=== PATIENT | male | born 1955 | race Caucasian/White ===

== ENCOUNTER 2018-09-29 15:59 | Inpatient (IN) ==
[2018-09-29 16:38] LABS: BASO# 0.03 X1000 (0.0-0.2); BASO% 0.2 % (0.0-0.8); EOS# 0.04 X1000 (0.0-0.7); EOS% 0.2 % (0.0-10.0); HEMATOCRIT 40.3 % (42.0-52.0); HEMOGLOBIN 14.6 g/dL (14.0-18.0); IMM GRAN# 0.09 X1000 (0.0-0.04); IMM GRAN% 0.5 % (0.0-0.5); LYMPH% 3.1 % (20.5-51.1); MCH 31.9 PG (27-31); MCHC 36.2 g/dL (33-37); MONO# 1.01 X1000 (0.11-0.59); MONO% 5.2 % (1.7-9.3); MPV 10.8 FL (7.4-10.4); NEUT# 17.48 X1000 (1.4-6.5); NEUT% 90.8 % (42.2-75.2); PLT 105 X1000 (130-400); RBC 4.58 XMIL (4.7-6.1); RDW 14.2 % (11.5-14.5); WBC 19.25 X1000 (4.8-10.8)
[2018-09-29 16:45] LABS: INR 1.15; PROTIME 15.6 Seconds (11.0-16.0)
[2018-09-29 16:46] LABS: PTT 37.8 Seconds (22.3-41.8)
[2018-09-29] MEDS ORDERED: NS 1,000 ML IV ONE ×2 (16:53)
[2018-09-29] MEDS ORDERED: CIPRO 400 MG/D5W 400 MG/200 ML IVPB IV SCH (17:00)
[2018-09-29 17:02] LABS: ALB/GLOB RATIO 0.9; ALBUMIN 2.9 g/dL (3.5-5.0); CALCIUM 7.9 mg/dL (8.8-10.2); POTASSIUM 4.3 mmol/L (3.5-5.1); TOTAL BILIRUBIN 0.75 mg/dL (0.20-1.00); TOTAL PROTEIN 6.1 g/dL (6.3-8.3)
--- NOTE | 2018-09-29 17:39 | Diag Imaging Result Doc PS360 ---
EXAM: CHEST-1 VIEW HISTORY: POSSIBLE SEPSIS TECHNIQUE: Chest single view COMPARISON: 12/11/2016 FINDINGS: The lungs are well expanded. The heart is not enlarged. The vessels are not distended. There are no infiltrates. No effusion identified. There are small scattered granuloma. IMPRESSION: No pneumonia Electronically signed by Javed Young 09/29/2018 5:37 PM
--- NOTE | 2018-09-29 18:54 | Diag Imaging Result Doc PS360 ---
EXAM: CT ABDOMEN/PELVIS W/O CONTRAST HISTORY: L flank pain, ROCIO TECHNIQUE: CT abdomen and pelvis without contrast COMPARISON: 10/11/2016 FINDINGS: The liver is enlarged. No focal hepatic normality identified on this noncontrasted exam. The spleen measures 13.9 cm in length. No calcified gallstones or adjacent inflammation. Normal pancreas and adrenal glands. No renal stones. No hydronephrosis. No aortic aneurysm. Moderate atherosclerosis. No bowel obstruction. There is stool throughout the colon. No abscess. The urinary bladder is poorly distended. There is thickening to the wall. The prostate is not enlarged. Prominent degenerative changes at L5-S1. IMPRESSION: 1.Hepatosplenomegaly 2.Constipation 3.No renal stones 4.Possible cystitis although the bladder is incompletely distended This exam was performed using automated exposure control, adjustment of mA or kV according to patient size, and/or use of iterative reconstruction technique. Electronically signed by Javed Young 09/29/2018 6:51 PM
[2018-09-29 19:46] LABS: URINE SOURCE CLEAN CATCH
[2018-09-29 19:56] LABS: BILIRUBIN URINE NEGATIVE (NEGATIVE); BLOOD URINE MODERATE (NEGATIVE); COLOR ORANGE; GLUCOSE URINE NEGATIVE (NEGATIVE); KETONE URINE NEGATIVE (NEGATIVE); LEUKOCYTES URINE LARGE (NEGATIVE); NITRITE URINE NEGATIVE (NEGATIVE); PROTEIN URINE 600 mg/dL (NEGATIVE); SP GRAVITY URINE 1.016; TURBIDITY URINE TURBID (CLEAR); UROBILINOGEN URINE 3 mg/dL (NORMAL)
[2018-09-29 20:09] LABS: UR EPITHELIAL CELLS <10 /HPF (<10); URINE BACTERIA 4+ /HPF; URINE RBC 20-40 /HPF (<10); URINE WBC TNTC /HPF (<10)
[2018-09-29 20:11] LABS: URINE YEAST NONE SEEN
[2018-09-29 20:12] LABS: UR AMPHETAMINES QUAL NONE DETECTED (NONE DETECT); UR BARBITUATES QUAL NONE DETECTED (NONE DETECT); UR BENZODIAZEPIN QUAL NONE DETECTED (NONE DETECT); UR CANNABINOIDS QUAL NONE DETECTED (NONE DETECT); UR COCAINE QUAL NONE DETECTED (NONE DETECT); UR METHADONE QUAL NONE DETECTED (NONE DETECT); UR OPIATES QUAL NONE DETECTED (NONE DETECT); UR OXYCODONE QUAL PRESUMPTIVE POSITIVE (NONE DETECT); UR PCP QUAL NONE DETECTED (NONE DETECT)
[2018-09-29] MEDS ORDERED: MORPHINE IV ONE (20:17)
[2018-09-29] MEDS ORDERED: ZOFRAN IV ONE (20:17)
[2018-09-29] MEDS ORDERED: COMPAZINE IV ONE (21:46)
[2018-09-29] MEDS ORDERED: PERICOLACE PO ONE (22:26)
[2018-09-30] MEDS ORDERED: ROCEPHIN 1 GM in NS 50 ML IV SCH (01:03)
[2018-09-30] MEDS ORDERED: COMPAZINE IV PRN (01:03)
[2018-09-30] MEDS ORDERED: TYLENOL PO PRN (01:03)
[2018-09-30] MEDS ORDERED: SODIUM CHLORIDE 0.9% INJ ONE (01:03)
[2018-09-30] MEDS: NS 1,000 ML IV SCH ×3 (03:02→16:45)
[2018-09-30] MEDS: MORPHINE IV PRN ×3 (03:02→16:12)
[2018-09-30] MEDS: HEPARIN SUBQ SCH ×2 (03:02→13:46)
[2018-09-30 03:10] LABS: UR CREAT RANDOM 112.5 mg/dL (14-26)
[2018-09-30 05:48] LABS: BASO# 0.03 X1000 (0.0-0.2); BASO% 0.2 % (0.0-0.8); EOS# 0.05 X1000 (0.0-0.7); EOS% 0.3 % (0.0-10.0); HEMATOCRIT 36.1 % (42.0-52.0); IMM GRAN# 0.07 X1000 (0.0-0.04); IMM GRAN% 0.4 % (0.0-0.5); LYMPH# 0.72 X1000 (1.2-3.4); LYMPH% 4.4 % (20.5-51.1); MCH 31.6 PG (27-31); MCV 87.8 FL (81-99); MONO% 6.1 % (1.7-9.3); MPV 10.5 FL (7.4-10.4); NEUT# 14.42 X1000 (1.4-6.5); NEUT% 88.6 % (42.2-75.2); PLT 99 X1000 (130-400); RBC 4.11 XMIL (4.7-6.1); RDW 14.2 % (11.5-14.5); WBC 16.29 X1000 (4.8-10.8)
[2018-09-30 06:15] LABS: CALCIUM 7.8 mg/dL (8.8-10.2); CREATININE 5.3 mg/dL (0.7-1.2); MAGNESIUM 2.1 mg/dL (1.5-2.7)
--- NOTE | 2018-09-30 07:05 | HISTORY AND PHYSICAL ---
PHYSICIAN: John Swain MD REASON FOR ADMISSION: One-week history of persistent nausea and flank pain. HISTORY OF PRESENT ILLNESS: Mr. Bryan Carey is a 63-year-old man with a past medical history of hypogonadism, kidney stones, BPH, glaucoma, seasonal allergic rhinitis and reflux disease. He reports that about two weeks ago he started having low back pain on both sides of his flank, non-radiating and intermittent. A week later the pain got worse, it became constant, sharp, and no specific aggravating or relieving factors, and subsequently the pain localized to the left lower flank area. Over the course of the week the pain increased in intensity and he developed some nausea with very occasional episodes of vomiting small amounts of whatever he attempted to ingest. He admits to having chills, night sweats and subjective fevers. He also complains of postural lightheadedness over the last couple of days. He says his urine output has been declining over the last three days up to the point today that when he went to see his family doctor his urine was very dark and "dirty." At that time juncture Dr. Swain referred him to the ER to be evaluated further. The son at bedside informs me that his dad's blood pressure over the last few days has been anywhere between 70 to 80 systolic. The patient denies any diarrhea or bleeding from an orifice, any use of NSAIDs. He admits to having increased urinary hesitancy and straining. As a consequence of his nausea, oral intake of both liquids and food has declined. He denies any hematuria. He denies any other additional GI complaints. No cardiorespiratory complaints. No focal neurological complaints. REVIEW OF SYSTEMS: Notable for constipation. A 12-system review was done. No polyuria or polydipsia. Positive for xerostomia and generalized weakness. ALLERGIES: Latex, Lyrica, and hydrocodone. HOME MEDICATIONS: The patient is on omeprazole 40 mg daily, oxycodone 10 mg four times a day as needed, brimonidine eyedrops twice daily, testosterone, cypionate 100 mg IM, travoprost 5 mL to both eyes, Zofran 4 mg p.r.n., Zyrtec 10 mg daily. PAST SURGICAL HISTORY: The patient has low back pain. He has had a left total knee replacement. Arthroscopy of the right knee. Bilateral inguinal hernia repair. Sinus surgery. Tonsillectomy. Vasectomy. FAMILY HISTORY: Breast cancer, heart disease, colorectal cancer, leukemia, melanoma, lung cancer. Nobody with kidney disease. SOCIAL HISTORY: He smokes 1-1/2 packs a day and drinks a beer maybe once a month. No illicit drug use. LABORATORY WORK: White count 19,000. Hemoglobin 14. Hematocrit 40. Platelets 105,000, which is a decline from 224 two years ago. Sodium 129. BUN 54. Creatinine 5.0. Bicarb 19. Anion gap 14. Glucose 131. Calcium 7.9. Troponin is negative. Albumin 2.9. Lactate is 1.5. PT and PTT normal. UDS positive for oxycodone. Urinalysis moderate blood too numerous to count, wbc's too numerous to count, 4+ bacteria. CT abdomen and pelvis showed constipation, hepatosplenomegaly, possible cystitis in the bladder. Chest film, no evidence of pneumonia. PHYSICAL EXAMINATION: VITAL SIGNS: Blood pressure is 101/56, heart rate is 116, temperature is 97.5. Afebrile. This is after 3 L of IV fluids. GENERAL: He is a middle-aged man who is in [id number] distress from the pain and nausea. He is alert and oriented to person, place and time with a normal mood and affect. HEENT: Head is normocephalic and atraumatic. Eyes, PERRL. EOMI. Sclerae anicteric, not pale. ENT and oropharynx exam shows moderate xerostomia but no exudate or erythema. No central cyanosis. NECK: Supple. No JVD, carotid bruits, or thyromegaly. Turgor is normal. CHEST: The patient has decreased air entry in both lung hilton with expiratory wheezes. CARDIOVASCULAR: First and second heart sounds heard. No gallops, murmurs, rubs. Rhythm is regular. ABDOMEN: Full, soft. There are no focal areas of tenderness anteriorly. He has bilateral CVA tenderness, however. Bowel sounds are diminished. RECTAL: Deferred at this time. EXTREMITIES: The patient surprisingly has good pulse volume distally in all extremities. They are symmetrical and regular. No edema, clubbing, or peripheral cyanosis. NEUROLOGIC: No asterixis. No focal deficits. SKIN: Intact with no breakdown, lesions, or erythema. MUSCULOSKELETAL: Grossly normal. ASSESSMENT: 1. Acute kidney injury, probably secondary to poor oral intake and the possibility of consumption of a nephrotoxic medication. 2. Urinary tract infection, possible pyelonephritis. 3. Possible obstructive uropathy. 4. Hypotonic, hypovolemic hyponatremia. PLAN: The patient will be treated empirically with Rocephin for a UTI. We will follow cultures closely. The patient will be aggressively hydrated with fluids and BMP closely monitored. Strict I's and O's also need to be instituted. Hyponatremia noted. We will correct once normal saline has been administered. Follow BMP the next day. We will get urine indices to determine the etiology of ROCIO. My suspicion is going to be a combination of prerenal and renal etiology. We will order a retroperitoneal sonogram to rule out obstructive uropathy. We will start the patient on Flomax, if available, due to the fact the patient is having increased urinary strain. If it is deemed that this patient is having obstructive uropathy from prostate issues, we will definitely need to review the possibility of anticholinergic effects, example Zyrtec which is on his list. We will treat the patient symptomatically regarding nausea, vomiting, and hiccups with multiple antiemetics. Failure for creatinine to improve after aggressive fluid resuscitation will necessitate a consult with the consumer product advisor. cc: MD John Brown MD MTDD
[2018-09-30] MEDS ORDERED: CARDIZEM ONE (07:34)
[2018-09-30] MEDS ORDERED: CARDIZEM IV ONE (07:35)
--- NOTE | 2018-09-30 07:35 | Diag Imaging Result Doc PS360 ---
EXAM: US RENAL 2 (RETROPER) COMPLETE HISTORY: ROCIO TECHNIQUE: Renal ultrasound COMPARISON: None. FINDINGS: The right kidney measures 12.7 x 4.3 x 4.9 cm. No renal stone or hydronephrosis. Normal cortical thickness. Persistent echotexture. No renal mass. The left kidney measures 13.1 x 5.4 x 6.5 cm. Normal renal echotexture and cortical thickness. No renal stone or hydronephrosis. No renal mass. The urinary bladder is only mildly distended. IMPRESSION: Questionable slight increased renal echotexture, otherwise normal exam. Electronically signed by Javed Young 09/30/2018 7:33 AM
--- NOTE | 2018-09-30 07:44 | EKG Report ---
Test Performed on : 09/30/2018 07:23:46 AM Test Reason : TACHYCARDIA Blood Pressure : / mmHG Vent. Rate : 152 BPM Atrial Rate : 150 BPM P-R Int : 000 ms QRS Dur : 088 ms QT Int : 256 ms P-R-T Axes : 000 077 046 degrees QTc Int : 407 ms Atrial fibrillation. with rapid ventricular response. Minimal voltage criteria for LVH, may be normal variant Nonspecific ST abnormality Abnormal ECG When compared with ECG of 21-OCT-2016 10:54, Atrial fibrillation. has replaced Sinus rhythm. Vent. rate has increased BY 56 BPM Unconfirmed Result
[2018-09-30] MEDS ORDERED: CARDIZEM 125 MG in NS 100 ML IV SCH (07:45)
[2018-09-30] MEDS: PERCOCET-10 PO SCH ×4 (08:35→20:59)
[2018-09-30] MEDS: PROTONIX IV SCH (08:35)
[2018-09-30] MEDS: PERICOLACE PO SCH ×3 (09:00→21:02)
[2018-09-30] MEDS ORDERED: TRAVATAN 0.004% OPH SOLN BOTH EYES SCH (09:00)
--- NOTE | 2018-09-30 11:00 | EKG Report ---
Test Performed on : 09/30/2018 10:56:02 AM Test Reason : afib Blood Pressure : / mmHG Vent. Rate : 098 BPM Atrial Rate : 105 BPM P-R Int : 000 ms QRS Dur : 092 ms QT Int : 328 ms P-R-T Axes : 000 078 065 degrees QTc Int : 418 ms Atrial fibrillation. Incomplete right bundle branch block Minimal voltage criteria for LVH, may be normal variant Abnormal ECG When compared with ECG of 30-SEP-2018 07:23, (Unconfirmed) Vent. rate has decreased BY [address] no longer depressed in Inferior leads Confirmed by Janice WHITTINGTON, Frandy ([id number]) on 09/30/2018 6:22:49 PM
[2018-09-30] MEDS ORDERED: CORDARONE 360 MG/D5W 360 MG/200 ML IV.SOLN IV ONE (11:12)
[2018-09-30] MEDS ORDERED: MAXIPIME 2 GM in NS 100 ML IV ONE (11:12)
[2018-09-30] MEDS ORDERED: CORDARONE 150 MG/D5W 150 MG/100 ML IV.SOLN IV ONE (11:12)
[2018-09-30] MEDS ORDERED: LOPRESSOR 5 MG in NS 50 ML IV SCH (11:15)
[2018-09-30] MEDS ORDERED: LOPRESSOR IV PRN (12:18)
--- NOTE | 2018-09-30 12:53 | CONSULTATION ---
DATE OF CONSULTATION: 09/30/2018 IMPRESSION: 1. Atrial fibrillation with rapid ventricular rate of recent onset. Suspect likely provoked by acuity of noncardiac illness. 2. Suspected urosepsis. 3. Likely COPD. 4. Hyponatremia. RECOMMENDATIONS: 1. Given tendency for low blood pressure with intravenous diltiazem, suggest switching to intravenous amiodarone for rate control. 2. Intravenous hydration. 3. Echocardiography. We will initially obtain limited echocardiography for quick assessment of left ventricular function. Tilt guide further volume replacement. 4. Treat for urosepsis as you are doing with parental antibiotics. HISTORY: This 63-year-old white male with past history of longstanding cigarette use, nephrolithiasis and probable COPD presents to the emergency room by ambulance with nausea and vomiting, and left flank pain for about a week. He has had diminished oral intake as well as fever and chills. He has had some diaphoresis developing as well. On presentation, he was found to be in atrial fibrillation with rapid ventricular rate. He was started on intravenous Cardizem, but his blood pressure became low. Cardiology was consulted. He is not aware of any previous cardiac problems. He has no history of angina. PAST MEDICAL HISTORY: 1. Nephrolithiasis. 2. Probable COPD. 3. Hypogonadism. 4. Prostate hypertrophy. 5. Glaucoma. 6. Gastroesophageal reflux. PAST SURGICAL HISTORY: Left total knee replacement, right knee arthroscopic procedure, bilateral inguinal hernia repair, unspecified sinus surgery, tonsillectomy and vasectomy. ALLERGIES: He is allergic or intolerant to hydrocodone, pregabalin and latex. MEDICATIONS PRIOR TO ADMISSION: As listed. SOCIAL HISTORY: He is retired from previous work operating heavy equipment. He smokes 1-1/2 pack of cigarettes a day. He denies significant alcohol use. He does not use recreational drugs. FAMILY HISTORY: Negative for premature coronary disease. REVIEW OF SYSTEMS: Pulmonary: Noteworthy for some chronic shortness of breath but negative for cough. Gastrointestinal: Noteworthy for gastroesophageal reflux. Otherwise negative. Constitutional: Noteworthy for fever and chills, but otherwise negative review of systems negative/noncontributory with 14 total systems reviewed. PHYSICAL EXAMINATION: General: This is a thin middle-aged white male in no distress. Vital signs: Blood pressure 98/48, heart rate 110 and irregular with ECG monitor showing atrial fibrillation. HEENT: Extraocular movements intact. Mucous membranes moist. Neck: Supple. No jugular venous distention. There are no carotid bruits. Chest: Auscultation of the chest reveals a few scattered expiratory wheezes. Cardiac: Reveals an irregular rate and rhythm without appreciable murmur or gallop. Abdomen: Soft, nontender. Back: Exam reveals some percussion tenderness and left costovertebral angle. Extremities: Without edema. Neurologic: Exam reveals him to be alert and fully oriented. Speech is fluent. Moves all 4 extremities equally well. Skin: Warm and dry. Psychiatric: Reveals mood to be appropriate. PERTINENT DATA: Twelve lead EKG demonstrates atrial fibrillation with rapid ventricular rate. LABORATORY DATA: Sodium 128, potassium 5.0, chloride 99, carbon dioxide 18, BUN 56, creatinine 5.3, glucose 113, magnesium 2.1. CPK 42. Troponin T less than 0.01. Urinalysis positive for leukocytes. cc: Anjum Koenig MD
[2018-09-30 14:43] LABS: CALCIUM 7.8 mg/dL (8.8-10.2); CREATININE 5.3 mg/dL (0.7-1.2); POTASSIUM 4.7 mmol/L (3.5-5.1)
[2018-09-30 16:33] LABS: FREE T4 0.98 ng/dL (0.93-1.70); TSH 0.72 uIUmL (0.27-4.20)
[2018-09-30] MEDS ORDERED: CORDARONE 540 MG in D5W 289.2 ML IV ONE (17:12)
--- NOTE | 2018-09-30 18:08 | PROGRESS NOTE ---
DATE: 09/30/2018 INTERVAL HISTORY: The patient with new onset of atrial fibrillation with RVR this morning. Heart rate is up into the 160s and 170s. Was initially placed on diltiazem with only some improvement. However, diltiazem drops his blood pressure. After discussion with Cardiology, this was changed to amiodarone which did finally control his heart rate. No fevers, but the patient did have an episode of diaphoresis and chills. Urine culture growing out gram-negative rods, and the blood cultures remain negative. Antibiotics adjusted for better Pseudomonas coverage. No other acute events overnight. No new complaints. REVIEW OF SYSTEMS: Still with low back pain, occasional diaphoresis, chills. No fevers. Occasional mild nausea, but no vomiting. No diarrhea. No dysuria. Twelve- point review of systems otherwise negative except as noted. LABORATORY DATA: WBC 16.2, hemoglobin 13, hematocrit 36.1, platelets 99,000. Sodium initially 128 and a repeat 132, potassium initial 5 and repeat 4.7. BUN 56, creatinine initial and recheck 5.3, glucose 113. Troponin negative x2. IMAGING: Chest x-ray with no acute process. CT abdomen and pelvis with hepatosplenomegaly and possible cystitis. Otherwise, unremarkable. Renal ultrasound with no evidence of obstruction. PHYSICAL EXAMINATION: Vitals: T-max 97.5, pulse 84 to 165, respirations 20, blood pressure 99/62, O2 saturations 95% on 2 L by nasal cannula. General: No acute distress. HEENT: Normocephalic, atraumatic. Dry mucous membranes. Neck: No cervical adenopathy. Cardiovascular: Irregular rhythm. Tachycardic. No murmurs noted. Pulmonary: Clear to auscultation bilaterally. No wheezing, rales, or rhonchi. No accessory muscle or increased work of breathing. Abdomen: Soft. Minimal suprapubic tenderness without rebound or guarding. Bowel sounds positive. No CVA tenderness. Extremities: Peripheral pulses intact. No clubbing, cyanosis, or edema. Minimal low lumbar spine tenderness bilaterally. Neurologic: Cranial nerves grossly intact. No focal deficits identified. Psychiatric: Normal mood and affect. Awake, alert, and oriented x3. Skin: No new rashes or lesions identified. ASSESSMENT AND PLAN: 1. Sepsis, possible pyelonephritis. Patient with urinalysis suggestive of urinary tract infection/cystitis. Back pain. Although current back pain is quite low and natasha CVA tenderness. Reportedly had flank pain earlier in his hospitalization. Significant leukocytosis and urine culture growing gram-negative rods. The patient appears to at least have cystitis with sepsis. May have pyelonephritis. Has had some slight improvement in leukocytosis, but otherwise little improvement. Occasional episodes of diaphoresis and chills could be related to new-onset atrial fibrillation, but will change Rocephin to cefepime to better cover for possible pseudomonal infection. Blood cultures, no growth today. Continue to monitor closely. 2. Acute kidney injury. Essentially normal baseline a few months ago. Urine output not documented, but appears to have a reasonable urine in his San catheter at the time of my exam. Slight up-trend in creatinine this morning but repeat this afternoon is stable. Continue to monitor. If kidney function fails to improve or worsens, then will likely get nephrology on board in the morning. For now, continue aggressive hydration and antibiotics as above. No acute need for dialysis at this time, and borderline hyperkalemia is improved. 3. Atrial fibrillation with rapid ventricular response. This is a new diagnosis for the patient. Cardiology was consulted. Initially given diltiazem, but this dropped his blood pressure too much. Transition to amiodarone which appears to be doing better. Initial troponin was negative x2. No chest pain. Thyroid studies pending. Suspect this is precipitated by his acute infection as above. 4. Hyponatremia, improved with intravenous fluids at a reasonable rate. Continue to monitor. 5. Gastroesophageal reflux disease. Continue PPI. 6. Chronic pain. The patient with morphine p.r.n. Given blood pressure low normal will not increase at this time. The patient reports being relatively comfortable. 7. Glaucoma. Continue home eye drops. 8. Deep vein thrombosis prophylaxis. Heparin. [facility]
--- NOTE | 2018-09-30 18:30 | ECHO REPORT ---
ORDER DATE: 09/30/2018 INTERPRETING PHYSICIAN: Ramesh Levin MD. INDICATION: A 63-year-old male with atrial fibrillation, evaluation of ejection fraction. M-MODE MEASUREMENTS: M-mode measurements were not obtained. SUMMARY OF 2-DIMENSIONAL IMAGIN. The study is limited. 2. The left ventricular systolic function is normal. Ejection fraction is estimated at 60%. 3. There is no evidence of significant left ventricular hypertrophy. 4. The chamber is mildly enlarged. 5. The right ventricle appears to be slightly enlarged. 6. The aortic valve appears to be grossly unremarkable. 7. The mitral valve also appears to be grossly unremarkable. 8. I do not see evidence of pericardial effusion. 9. The left atrium appears to be moderately enlarged. SUMMARY: In summary, this study shows: 1. Preserved left ventricular systolic function, ejection fraction of 61%. 2. No pericardial effusion. 3. Grossly unremarkable mitral and aortic valve. 4. Mild enlargement of both right and left ventricles. Clinical correlation recommended. This was a limited study. cc: MD Monalisa العراقي PA
[2018-09-30] MEDS: NON-FORMULARY BULK MED BOTH EYES SCH (20:59)
[2018-09-30] MEDS: ZOFRAN IV PRN (21:00)
[2018-09-30] MEDS: TRAVATAN 0.004% OPH SOLN BOTH EYES SCH (21:11)
[2018-10-01] MEDS: MORPHINE IV PRN ×2 (00:14→04:20)
[2018-10-01] MEDS: HEPARIN SUBQ SCH ×2 (02:15→16:28)
[2018-10-01 05:22] LABS: BASO# 0.04 X1000 (0.0-0.2); BASO% 0.3 % (0.0-0.8); EOS# 0.08 X1000 (0.0-0.7); EOS% 0.7 % (0.0-10.0); HEMATOCRIT 34.9 % (42.0-52.0); HEMOGLOBIN 12.4 g/dL (14.0-18.0); IMM GRAN# 0.05 X1000 (0.0-0.04); IMM GRAN% 0.4 % (0.0-0.5); LYMPH# 1.04 X1000 (1.2-3.4); MCH 31.6 PG (27-31); MCHC 35.5 g/dL (33-37); MONO# 0.96 X1000 (0.11-0.59); MONO% 8.3 % (1.7-9.3); NEUT# 9.39 X1000 (1.4-6.5); NEUT% 81.3 % (42.2-75.2); PLT 109 X1000 (130-400); RBC 3.92 XMIL (4.7-6.1); RDW 14.9 % (11.5-14.5); WBC 11.56 X1000 (4.8-10.8)
[2018-10-01 06:00] LABS: CREATININE 5.7 mg/dL (0.7-1.2); POTASSIUM 4.3 mmol/L (3.5-5.1)
--- NOTE | 2018-10-01 07:10 | EKG Report ---
Test Performed on : 10/01/2018 06:58:32 AM Test Reason : afib Blood Pressure : / mmHG Vent. Rate : 091 BPM Atrial Rate : 091 BPM P-R Int : 170 ms QRS Dur : 096 ms QT Int : 354 ms P-R-T Axes : 077 079 063 degrees QTc Int : 435 ms Normal sinus rhythm. Normal ECG When compared with ECG of 30-SEP-2018 18:08, (Unconfirmed) No significant change was found Confirmed by Janice WHITTINGTON, Frandy ([id number]) on 10/01/2018 8:44:21 AM
--- NOTE | 2018-10-01 07:11 | EKG Report ---
Test Performed on : 09/30/2018 6:08:06 PM Test Reason : Confirm rhythm Blood Pressure : / mmHG Vent. Rate : 083 BPM Atrial Rate : 083 BPM P-R Int : 162 ms QRS Dur : 094 ms QT Int : 368 ms P-R-T Axes : 063 069 052 degrees QTc Int : 432 ms Normal sinus rhythm. Normal ECG When compared with ECG of 30-SEP-2018 10:56, (Unconfirmed) Sinus rhythm. has replaced Atrial fibrillation. Confirmed by Janice WHITTINGTON, Frandy ([id number]) on 10/01/2018 8:43:48 AM
[2018-10-01] MEDS: PROTONIX IV SCH (08:34)
[2018-10-01] MEDS: PERCOCET-10 PO SCH ×4 (08:34→21:11)
[2018-10-01] MEDS: PERICOLACE PO SCH ×2 (08:36→21:00)
[2018-10-01] MEDS ORDERED: MAXIPIME 1 GM in NS 50 ML IV SCH (09:00)
[2018-10-01] MEDS ORDERED: MAXIPIME 0.5 GM in NS 50 ML IV SCH (09:00)
[2018-10-01] MEDS: NON-FORMULARY BULK MED BOTH EYES SCH ×2 (09:15→21:11)
--- NOTE | 2018-10-01 09:41 | INFECTIOUS DISEASE CONSULT REP ---
DATE: 10/01/2018 CONCLUSION: The patient has a gram-negative tavo bacteremia and a gram-negative tavo urinary tract infection. I suspect the patient's infection initiated in the kidney and then became bacteremic. The patient apparently has some kidney problems but he is now in profound renal failure with a creatinine of 5.7 and a GFR of 10. The patient, unfortunately, has a left total knee arthroplasty in place. This could have become infected hematogenously. RECOMMENDATIONS: The patient is on cefepime and the patient's white count is coming down. Therefore, I would assume that the gram-negative tavo organism is susceptible to cefepime and I plan to continue it pending the final identification and susceptibility testing of the organism. I plan to treat the patient for 6 weeks with an antibiotic. Most likely, it will be something in the vein but if it is susceptible to Levaquin, then we could use that antibiotic p.o. because it gets blood levels that are the same as if it is given intravenously. I plan to give it to him for 6 weeks because the left total knee arthroplasty could have become hematogenously infected. Following the 6 week course of treatment with an antibiotic, I will put the patient on a low dose of an oral antibiotic on a chronic basis to hopefully prevent any organism that is still in the knee from flaring up. DISCUSSION: The patient, for the past week, has been having some left CVA and left middle abdominal area pain. He has also had fever and chills as well as dysuria. His blood and urine cultures are growing gram-negative rods as mentioned above. The patient's CBC shows a white count today of 11,560, hemoglobin 12.4, and platelet count 109,000. Echocardiogram showed no valvular vegetations. Both blood and urine are growing gram-negative tavo. Creatinine is 5.7. GFR is 10. CT scan of the abdomen and pelvis shows hepatosplenomegaly. There were no renal stones and there is a possibility of cystitis. The patient's chest x-ray is clear. REVIEW OF SYSTEMS: Eyes and Ears: His hearing is okay. He is blind in his right eye. Neck: No pain. Respiratory: No cough or shortness of breath. Cardiac: No chest pain or palpitations. Genitourinary: See present illness. GI: No nausea, vomiting, or diarrhea. Neurologic: No seizures. No recent loss of motor or sensory function. Integument: No rash. PREVIOUS HOSPITALIZATIONS AND OPERATIONS: He has had a bilateral hernia repair, back surgery, a left total knee arthroplasty, a right knee arthroscopy, amputation of the distal right ring finger. He has had eye surgeries for glaucoma and cataract. MEDICAL DISEASES: Positive for renal calculi, although none were seen in the patient's studies done during this hospitalization. INFECTIOUS DISEASE HISTORY: Positive for pneumonia. FAMILY HISTORY: Positive for myocardial infarction and cancer. SOCIAL HISTORY: The patient is a . He lives with [place] have an outdoor cat. The patient smokes cigarettes but he does not drink alcoholic beverages or abuse drugs. He has retired from working. HOME MEDICATIONS: His home medications include the following: Brinzolamide eyedrops, Zyrtec, omeprazole, Zofran, oxycodone, testosterone, Travatan eyedrops. PHYSICAL EXAMINATION: Vital Signs: Temperature is 97.6 degrees, pulse 92, respirations 16, blood pressure is 113/71. The patient is 6 feet 2 inches tall, weighs 160 pounds. General: This is a fairly healthy-appearing, middle-aged male. He is in no acute distress. Head, Eyes, Ears, Nose, and Throat: He can hear my spoken words and see near objects. He does not have any white patches on his tongue. Neck: No pain with movement of the neck. Lungs: Clear to auscultation. Cardiovascular: Regular heart rate. Abdomen and Flanks: On the left side, he has some mid abdominal tenderness and left CVA tenderness also. Neurologic: The patient is alert. He can move his extremities. There is no tremor. His sensation is intact to touch. His memory as regarding his medical history was good. Integument: No rash noted. Thank you for the consult. cc: Jace Murrell MD
[2018-10-01] MEDS ORDERED: MAXIPIME 0.5 GM in NS 50 ML IV ONE (10:00)
[2018-10-01] MEDS ORDERED: CORDARONE PO SCH ×2 (11:00→11:37)
--- NOTE | 2018-10-01 15:27 | PROGRESS NOTE ---
DATE: 10/01/2018 SUBJECTIVE: Patient reports feeling better. He denies chest discomfort or shortness of breath. Appetite is still diminished. OBJECTIVE: Vital Signs: Blood pressure 113/71. Heart rate 92 and regular with ECG monitor showing sinus rhythm. Oxygen saturation 93%. Neck: There is no significant jugular venous distention. Chest: Auscultation of the chest reveals a few scattered expiratory wheezes. Cardiac Exam: Reveals a regular rate and rhythm without appreciable murmur or gallop. Extremities: There is no evidence of peripheral edema. LABORATORY DATA: Includes a white blood cell count 11.56, hematocrit 34.9, hemoglobin 12.4, platelet count 109. Sodium 130, potassium 4.3, chloride 103, carbon dioxide 16. BUN 61, creatinine 5.7, glucose 107. X-RAY DATA: Echocardiography indicates normal left ventricular ejection fraction. IMPRESSION: 1. Atrial fibrillation in the setting of acute noncardiac illness with urosepsis. Patient has converted back to sinus rhythm. 2. Urosepsis. 3. Likely chronic obstructive pulmonary disease. 4. Hyponatremia. RECOMMENDATIONS: 1. Discontinue amiodarone and observe rhythm. 2. Initiate bronchodilator therapy in light of wheezing and probable COPD. cc: Anjum Koenig MD
[2018-10-01] MEDS: NS 1,000 ML IV SCH ×2 (16:29→23:41)
[2018-10-01 16:54] LABS: URINE SOURCE VOIDED
[2018-10-01 17:04] LABS: BILIRUBIN URINE NEGATIVE (NEGATIVE); BLOOD URINE LARGE (NEGATIVE); COLOR YELLOW; GLUCOSE URINE NEGATIVE (NEGATIVE); KETONE URINE NEGATIVE (NEGATIVE); LEUKOCYTES URINE LARGE (NEGATIVE); NITRITE URINE NEGATIVE (NEGATIVE); PH URINE 5.5; PROTEIN URINE 100 mg/dL (NEGATIVE); SP GRAVITY URINE 1.007; TURBIDITY URINE HAZY (CLEAR); UROBILINOGEN URINE NORMAL (NORMAL)
[2018-10-01 17:11] LABS: UR EPITHELIAL CELLS <10 /HPF (<10); URINE BACTERIA NEGATIVE /HPF; URINE RBC 20-40 /HPF (<10); URINE WBC TNTC /HPF (<10)
[2018-10-01 17:18] LABS: UR CREAT RANDOM 93.4 mg/dL (14-26); UR PROT RANDOM 95.5 mg/dL
[2018-10-01 17:21] LABS: URINE CASTS GRANULAR PRESENT; URINE CRYSTALS NONE SEEN; URINE SMALL ROUND CELLS TRANS PRESENT; URINE YEAST NONE SEEN
--- NOTE | 2018-10-01 18:32 | PROGRESS NOTE ---
DATE: 10/01/2018 INTERVAL HISTORY: The patient is no longer diaphoretic. Still reporting some worsening of his chronic pain primarily in the low back, but overall improved. Reports that he only takes brand- name Percocet. Discussed with patient that if he can get someone to bring up his home brand name Percocet, we will be happy to label it and let him take his home medication. The patient's blood cultures did come positive for gram-negative rods. Remains afebrile. No other acute events overnight. REVIEW OF SYSTEMS: Twelve point review of systems negative except as per interval history. LABS: WBC 11.5, hemoglobin 12.4, hematocrit 34.9, platelets 109,000. Sodium 130, potassium 4.3, bicarb 16, BUN 61, creatinine 5.7, glucose 107. VITALS: T-max 98.7, pulse 92, respirations 16, blood pressure 113/71. O2 sat 93% on 2 L by nasal cannula. PHYSICAL EXAMINATION: General: No acute distress. Vitals: As above. HEENT: Normocephalic, atraumatic. Moist mucous membranes noted. No cervical adenopathy. Cardiovascular: Mow back in regular rhythm. Normal rate. No murmurs noted. Pulmonary: Clear to auscultation bilaterally. No wheezes, rales or rhonchi. Abdomen: Soft. Tenderness resolved. Bowel sounds positive. Extremities: Peripheral pulses intact. No clubbing, cyanosis or edema. Minimal lower lumbar paraspinal tenderness, unchanged. Neurologic: Cranial nerves grossly intact. No focal deficits. Psychiatric: Normal mood and affect. Awake, alert, oriented x 3. Skin: No new rashes or lesions identified. ASSESSMENT AND PLAN: 1. Sepsis, likely pyelonephritis, gram-negative tavo bacteremia. Patient with urinalysis suggestive of UTI, back pain, leukocytosis, and now with gram-negative tavo bacteremia. All consistent with UTI/pyelonephritis with sepsis. Put on Rocephin initially. Change to cefepime yesterday. Repeating blood culture and obtaining Infectious Disease consult, is given bacteremia. Will likely need at least 2 weeks of IV antibiotics. Continue cefepime for now pending specifics of culture. Continue to monitor closely. 2. Acute kidney injury. Essentially normal baseline a few months ago. Urine output reasonable, but creatinine continued to trend up. No evidence of obstruction on imaging. Will ask Nephrology to see. Suspect ATN. 3. Atrial fibrillation with rapid ventricular response. New diagnosis for the patient. Cardiology was consulted. Put on amiodarone yesterday because of low blood pressure with diltiazem and that has now converted back to normal sinus rhythm. Suspect this was precipitated by his acute infection as above. 4. Hyponatremia. Initially improved with fluids, but now fairly soon stable at 130. We will see what Nephrology says. 5. Gastroesophageal reflux disease. Continue PPI. 6. Chronic pain. Patient with morphine p.r.n. Will change to patient's home Percocet if he would prefer. 7. Glaucoma. Continue home eye drops. 8. DVT prophylaxis. Heparin. [facility]
--- NOTE | 2018-10-01 19:43 | NEPHROLOGY CONSULTATION ---
DATE: 10/01/2018 ATTENDING PHYSICIAN: Scot Bashir MD. REASON FOR CONSULTATION: Acute kidney injury. Suspect ATN. HISTORY OF PRESENT ILLNESS: Mr. Carey is a 63-year-old white male with a history of kidney stones and a history of chronic pain syndrome, for which he takes multiple narcotic medications. When asked about his history, he focuses on his pain and associated symptoms related to the medications, specifically, nausea and anorexia. He does not have diarrhea. Minimal vomiting. He has not had a bowel movement in 1 week. No cough or sputum. No chest pain or palpitations. Because his symptoms worsened, he became less and less able to care for himself and ultimately was brought to the emergency room by his family. His initial evaluation performed on the found tachycardia but normal temperature. He was treated with volume resuscitation and empiric broad- spectrum antibiotics and admitted to the hospital. His initial lab data found a creatinine of 5.0, a bicarbonate of 19 with an anion gap of 14, no ABG. His urine was positive for protein and blood as well as too numerous to count white blood cells. Subsequently, blood cultures and urine cultures are both positive for gram-negative rods, and he has been treated with appropriate antibiotics. In this context, he states his urine output has been improving, and he feels better though he remains anorexic and weak and continually complaining of pain. PAST MEDICAL HISTORY: As above. MEDICATIONS: Home medications include omeprazole, oxycodone, multiple eyedrops, testosterone. ALLERGIES: Hydrocodone, pregabalin, and latex. SOCIAL: Ongoing smoker. Lives with his son. FAMILY HISTORY: Otherwise noncontributory. REVIEW OF SYSTEMS: Otherwise noncontributory. PHYSICAL EXAMINATION: Vital Signs: Blood pressure 112/68, heart rate 82, respirations 14, afebrile. General: No acute distress. Skin: Warm and dry. HEENT: Conjunctivae are pink. Oropharynx is dry. Dentition normal. Tongue normal. Neck: Supple. Trachea is midline. Neck veins are not distended. Heart: Regular and tachycardic with an S4. PMI nondisplaced. Lungs: Have equal breath sounds. No crackles or wheezes. No accessory muscle use or retractions. Abdomen: Soft, nontender. Bowel sounds are present. No organomegaly or masses. Extremities: No edema, clubbing, or cyanosis. IMPRESSION: Acute kidney injury in the context of gram-negative tavo bacteremia and overall low fractional excretion of sodium (FENa). I expect that he has components of acute tubular necrosis as well as volume contraction. PLAN: I will administer normal saline overnight at 125 mL/hr. I have reviewed his medications, and no other alterations are needed. No further imaging is required. I counseled the patient regarding the cause of his kidney problem and our plan. All questions answered. cc: Durga Carmen MD
[2018-10-01] MEDS: TRAVATAN 0.004% OPH SOLN BOTH EYES SCH (21:11)
[2018-10-01] MEDS: DUONEB (A & A) INH SCH (21:37)
--- NOTE | 2018-10-01 23:39 | ECHO REPORT ---
ORDER DATE: 10/01/2018 SUMMARY: 1. Fair quality study. 2. Aortic valve is trileaflet and opens normally on 2-dimensional images. Peak gradient across aortic valve is less than 10 mmHg. Mitral, tricuspid, and pulmonic valves are without evidence of structural abnormality with mild mitral regurgitation, mild tricuspid regurgitation, and mild pulmonic insufficiency. The estimated systolic PA pressure by Doppler is 40 to 45 mmHg, suggesting mild pulmonary hypertension. Aortic root is normal size. 3. Normal left ventricular dimensions demonstrated. Estimated left ventricular ejection fraction appears to be at least 65%. No regional wall motion abnormalities are evident. Mild to moderate biatrial enlargement is demonstrated. Right ventricle is grossly normal in size with grossly preserved right ventricular systolic function. 4. No pericardial fusion. 5. Appearance of inferior vena cava suggests normal central venous pressure. cc: Anjum Koenig MD
[2018-10-02] MEDS: MORPHINE IV PRN (04:00)
[2018-10-02] MEDS: HEPARIN SUBQ SCH ×3 (04:53→17:12)
[2018-10-02 05:47] LABS: ALLEN TEST YES; BE -9.3 mmoll (-3.0-3.0); BLOOD TYPE ARTERIAL; HCO3-(ACT) 17.6 mmoll (20.0-26.0); METHB 0.9 % (0.0-1.5); O2(CT) 16.1 mL/dL (15.0-23.0); O2HB 92.3 % (95.0-99.0); PCO2(98.6) 34 mmHg (35-45); PO2(98.6) 67 mmHg (60-100); SAMPLE BLOOD; SAO2 94.8 % (95.0-100.0); THB 12.4 g/dL (11.5-17.4); pH(98.6) 7.29 (7.35-7.45)
[2018-10-02 05:48] LABS: BASO# 0.04 X1000 (0.0-0.2); BASO% 0.3 % (0.0-0.8); EOS# 0.09 X1000 (0.0-0.7); EOS% 0.7 % (0.0-10.0); HEMOGLOBIN 12.3 g/dL (14.0-18.0); IMM GRAN# 0.05 X1000 (0.0-0.04); IMM GRAN% 0.4 % (0.0-0.5); LYMPH# 0.88 X1000 (1.2-3.4); MCH 31.1 PG (27-31); MCHC 35.1 g/dL (33-37); MCV 88.6 FL (81-99); MONO% 8.8 % (1.7-9.3); MPV 10.1 FL (7.4-10.4); NEUT# 10.39 X1000 (1.4-6.5); NEUT% 82.8 % (42.2-75.2); PLT 119 X1000 (130-400); RBC 3.95 XMIL (4.7-6.1); RDW 15.2 % (11.5-14.5); WBC 12.55 X1000 (4.8-10.8)
[2018-10-02 05:57] LABS: MODALITY CANNULA
[2018-10-02 06:13] LABS: CALCIUM 7.9 mg/dL (8.8-10.2); CREATININE 5.5 mg/dL (0.7-1.2); POTASSIUM 4.3 mmol/L (3.5-5.1)
[2018-10-02 07:29] LABS: BANDS 4 % (0-1); LYMPHS 8 % (21-51); MONO 2 % (1-9); SEGS 86 % (42-75)
[2018-10-02] MEDS ORDERED: LEVAQUIN PO ONE (07:42)
[2018-10-02] MEDS: DIFLUCAN PO SCH (08:06)
[2018-10-02] MEDS: MYCOSTATIN SUSP PO SCH ×4 (08:06→21:15)
[2018-10-02] MEDS: NS 1,000 ML IV SCH ×2 (08:06→16:17)
[2018-10-02] MEDS: PERCOCET-10 PO SCH ×4 (08:06→21:15)
[2018-10-02] MEDS: PERICOLACE PO SCH ×2 (08:07→21:16)
[2018-10-02] MEDS: NON-FORMULARY BULK MED BOTH EYES SCH ×2 (08:07→21:58)
[2018-10-02] MEDS: PROTONIX IV SCH (08:07)
--- NOTE | 2018-10-02 09:24 | INFECTIOUS DISEASE PROGRESS NO ---
DATE: 10/02/2018 PRESENT ILLNESS: The patient has an E coli urinary tract infection and an associated bacteremia. The patient also appears to have developed oral and esophageal candidiasis. MEDICATIONS: Currently, the patient is receiving cefepime as a single agent. PHYSICAL EXAMINATION: Vital Signs: Temperature is 97.8 degrees, pulse 89, respirations 20, blood pressure 117/73. General: This is a fairly healthy-appearing, middle-aged male. He is in no acute distress. Head, eyes, ears, nose, and throat: He can hear my spoken words and see near objects. He has a white coating on his tongue and he tells me that his throat is sore and he has heartburn when he eats or drinks. Lungs: Clear to auscultation. Cardiovascular: Regular heart rate. Abdomen: Soft and nontender. Neurologic: Patient is alert he can move his extremities. There is no tremor. Integument: No rash noted. LAB AND X-RAY: The patient's CBC today shows a white count of 12,550, hemoglobin 12.3, platelet count 119,000 creatinine is 5.5, GFR is 11. Both blood and urine are growing E coli. The patient's blood gases show a pH of 7.29, a PO2 of 67, and a pCO2 of 34. ASSESSMENT AND PLAN: Patient has an E coli urinary tract infection with an associated bacteremia. For now, I am going to continue cefepime but when the patient is discharged, I think he could be switched to Levaquin and if the patient's creatinine is still high, I would give him the 250 mg dose to be taken every 24 hours. If his renal function recovers a lot, then the dose of Levaquin could be an higher such as 500 mg pending the results of the serum creatinine and GFR. The patient seems to have developed oral candidiasis and by his complaint of pain when he swallows and heartburn, I suspect he may have esophageal candidiasis as well. I have started him on Mycostatin swish and swallow and fluconazole in a reduced dose of 200 mg daily because the patient's renal failure. I plan to treat the patient with antibiotics for 14 days with day 1 being the first day that the repeat blood cultures are sterile. COMORBIDITIES: I am uncertain as to why the patient has developed his renal failure. He does have a history of renal calculi, but there does not seem to be any calculi present currently and there is and appears to be no obstruction of the urinary tract either. cc: Jace Murrell MD
[2018-10-02] MEDS: DUONEB (A & A) INH SCH ×3 (09:25→21:25)
[2018-10-02] MEDS ORDERED: MAXIPIME 1 GM in NS 50 ML IV SCH (10:00)
[2018-10-02] MEDS: MAXIPIME 1 GM in NS 50 ML IV SCH (17:12)
--- NOTE | 2018-10-02 17:39 | NEPHROLOGY PROGRESS NOTE ---
DATE: 10/02/2018 SUBJECTIVE: No complaints today. He lets his daughter do most of the talking, but he has no nausea, vomiting or shortness of breath. OBJECTIVE: Vital Signs: Blood pressure 120/72, heart rate 95, respirations 20, afebrile. General: No acute distress. Skin: Warm and dry. Neck: Veins are not visible. Heart: Regular with S4 gallop. Lungs: Equal. No crackles or wheezes. Abdomen: Soft, nontender. Bowel sounds present. Extremities: No edema, clubbing or cyanosis. IMPRESSION: 1. Acute kidney injury. Creatinine today is 5.5. This is the first day that his creatinine has at least come down. Urine output is improved. Continue his IV fluids for now. Electrolytes and acid-base are acceptable though he does have a modest metabolic acidosis. cc: Durga Carmen MD
--- NOTE | 2018-10-02 17:43 | PROGRESS NOTE ---
DATE: 10/02/2018 INTERVAL HISTORY: The patient's diaphoresis resolved. Chronic back pain improved. He remains afebrile. No acute events overnight. REVIEW OF SYSTEMS: A 12 point review of system negative except as per Interval History. LABORATORIES: WBC 12.5, hemoglobin 12.3, hematocrit 35.0, platelets 119,000. ABG with pH 7.29, pCO2 of 34, PO2 of 67, O2 saturation 94%, on 2 L by nasal cannula. Sodium 133, potassium 4.3, bicarbonate 18, BUN 59, creatinine 5.5. VITALS: T-max 98.2 degrees, pulse 96, respirations 18, blood pressure 137/69, O2 saturation 100% on 2 L by nasal cannula. PHYSICAL EXAMINATION: General: No acute distress, ill appearing. Vitals: As above. HEENT: Normocephalic, atraumatic. Moist mucous membranes. No cervical adenopathy. Cardiovascular: Regular rate and rhythm. No murmurs noted. Pulmonary: Clear to auscultation bilaterally. No wheezes, rales, or rhonchi. Abdomen: Soft, nontender. Bowel sounds positive. Extremities: Peripheral pulses intact. No clubbing, cyanosis, or edema. Musculoskeletal: Minimal lower lumbar paraspinal tenderness, stable. Neurologic: Cranial nerves grossly intact. No focal deficits. Psychiatric: Normal mood and affect. Awake, alert, and oriented x3. Skin: No new rashes or lesions identified. ASSESSMENT AND PLAN: 1. Sepsis, likely pyelonephritis, Escherichia coli bacteremia. Patient with urinalysis suggestive of UTI, back pain, leukocytosis, and now with E coli bacteremia. All are consistent with UTI/pyelonephritis and sepsis. Put on Rocephin initially, but changed to cefepime because of ongoing diaphoresis and discomfort. Repeat blood culture no growth today. ID on board and in agreement with cefepime. Initial blood cultures now showing E coli resistant only to ampicillin, Augmentin, cefazolin, gentamicin, tobramycin, and Bactrim, which is also what his urine culture is growing. May be able to transition to Levaquin but will await Infectious Disease recommendations. Infectious Disease is planning on 2 weeks total of treatment if blood cultures remain negative. 2. Acute kidney injury. Essentially normal baseline a few months ago. Urine output reasonable, but creatinine remains high. Minimal improvement today. No evidence of obstruction on imaging. Nephrology following. Suspect ATN. 3. Atrial fibrillation with rapid ventricular response. Has been back in normal sinus rhythm for the last day and a half. Cardiology on board. We will continue to monitor. Suspect this was precipitated by his acute infection as above. 4. Hyponatremia. Overall somewhat improved with fluids. Continue to monitor. Pretty mild at this point. 5. Gastroesophageal reflux disease. Continue PPI. 6. Chronic pain. Patient with home Percocet and morphine p.r.n. 7. Glaucoma. Continue home eye drops. 8. Deep vein thrombosis prophylaxis. Heparin.
[2018-10-02] MEDS ORDERED: CARDIZEM IV ONE ×2 (18:39→18:46)
[2018-10-02] MEDS ORDERED: CARDIZEM 125/NS 125 MG/125 ML IVPB IV SCH (18:45)
[2018-10-02] MEDS: CARDIZEM 125/NS 125 MG/125 ML IVPB IV SCH (19:08)
[2018-10-02] MEDS: CORDARONE PO SCH (21:16)
[2018-10-02] MEDS: TRAVATAN 0.004% OPH SOLN BOTH EYES SCH (21:58)
--- NOTE | 2018-10-02 22:50 | CARDIOLOGY PROGRESS NOTE ---
DATE: 10/02/2018 SUBJECTIVE: The patient continues without chest discomfort or dyspnea. He reports some weakness but overall is progressively feeling better. OBJECTIVE: Blood pressure 120/67, heart rate 77, oxygen saturation 95%. There is no significant jugular venous distention. Chest is clear to auscultation. Cardiac exam reveals a regular rate and rhythm without appreciable murmur or gallop. There is no evidence of peripheral edema. LABORATORY DATA: Includes a white blood cell count of 12.55, hematocrit 35.0, hemoglobin 12.3, platelet count 119,000. Sodium 133, potassium 4.3, chloride 104, carbon dioxide 18, BUN 59, creatinine 5.5, glucose 99. DIAGNOSTIC DATA: Echocardiography indicates normal left ventricular ejection fraction. IMPRESSION: 1. Atrial fibrillation in the setting of acute noncardiac illness with sepsis and acute renal failure. The patient has converted back to sinus rhythm. Suspect atrial fibrillation likely provoked by acute noncardiac illness. 2. Urosepsis. 3. Acute renal failure, probably related to urosepsis and intravascular volume depletion, with resultant acute tubular necrosis. 4. Suspect chronic obstructive pulmonary disease. RECOMMENDATIONS: 1. Continue to monitor rhythm on telemetry. 2. No further cardiovascular suggestions. We will see further on an as-needed basis. cc: Anjum Koenig MD
[2018-10-03] MEDS: NS 1,000 ML IV SCH ×3 (00:49→17:10)
[2018-10-03 05:31] LABS: BASO# 0.03 X1000 (0.0-0.2); BASO% 0.3 % (0.0-0.8); EOS# 0.08 X1000 (0.0-0.7); EOS% 0.8 % (0.0-10.0); HEMATOCRIT 34.2 % (42.0-52.0); HEMOGLOBIN 12.1 g/dL (14.0-18.0); IMM GRAN# 0.07 X1000 (0.0-0.04); IMM GRAN% 0.7 % (0.0-0.5); LYMPH% 10.4 % (20.5-51.1); MCH 31.4 PG (27-31); MCHC 35.4 g/dL (33-37); MCV 88.8 FL (81-99); MONO# 0.96 X1000 (0.11-0.59); MONO% 9.1 % (1.7-9.3); MPV 10.4 FL (7.4-10.4); NEUT# 8.31 X1000 (1.4-6.5); NEUT% 78.7 % (42.2-75.2); PLT 130 X1000 (130-400); RBC 3.85 XMIL (4.7-6.1); RDW 15.5 % (11.5-14.5); WBC 10.55 X1000 (4.8-10.8)
[2018-10-03 06:09] LABS: CALCIUM 7.4 mg/dL (8.8-10.2); CREATININE 4.2 mg/dL (0.7-1.2); POTASSIUM 4.4 mmol/L (3.5-5.1)
[2018-10-03] MEDS: HEPARIN SUBQ SCH ×3 (06:27→20:41)
[2018-10-03] MEDS: MYCOSTATIN SUSP PO SCH ×5 (06:35→20:41)
[2018-10-03] MEDS: PERICOLACE PO SCH ×2 (08:57→20:41)
[2018-10-03] MEDS: PERCOCET-10 PO SCH ×4 (08:58→20:42)
[2018-10-03] MEDS: CORDARONE PO SCH ×3 (08:59→17:09)
[2018-10-03] MEDS: PROTONIX IV SCH (09:03)
[2018-10-03] MEDS: DIFLUCAN PO SCH (09:03)
[2018-10-03] MEDS: NON-FORMULARY BULK MED BOTH EYES SCH ×2 (09:04→20:47)
[2018-10-03] MEDS: DUONEB (A & A) INH SCH ×3 (09:23→19:30)
--- NOTE | 2018-10-03 12:55 | CARDIOLOGY PROGRESS NOTE ---
DATE: 10/03/2018 CHIEF COMPLAINT: Irregular heartbeat, weakness. SUBJECTIVE: Mr. Carey had an episode of paroxysmal atrial fibrillation yesterday. The nurses called me and I suggested Cardizem drip IV. Within 2 or 3 hours, the patient converted back to sinus rhythm. He is feeling better this morning. Daughter is at the bedside. He appears to be somewhat better as far as his strength and general well-being. He is not having any pain. His rhythm is sinus today. OBJECTIVE: Vital signs: Temperature 97.9, pulse 82, respirations 16, blood pressure 112/62. General: He is awake, appears to be somewhat emaciated. HEENT: Unremarkable. Chest: Diminished breath sounds at bases. Heart: Sounds regular and rhythmic. I do not hear a gallop or murmur. Abdomen: Nontender, soft. No masses. No hepatomegaly. Extremities: Show no edema. Neurologic exam: Follow commands, moves all 4 extremities. BLOOD WORK: Hemoglobin 12.1, hematocrit 34.2. Sodium 134, potassium 4.4, BUN 57, creatinine 4.2. IMPRESSION: A patient who presented with: 1. Septicemia, Escherichia coli urinary tract infection. 2. Paroxysmal atrial fibrillation. 3. Acute renal failure, severe. 4. History of chronic obstructive pulmonary disease. 5. Remote history of Lyme disease. RECOMMENDATIONS: At this time, we will continue to use Cardizem as needed to control his heart rate. Right now, he is converted. He is on oral amiodarone. We will see how he does over the next few days. We will continue to monitor him. cc: Ramesh Levin MD
[2018-10-03] MEDS: CARDIZEM 125/NS 125 MG/125 ML IVPB IV SCH (14:10)
--- NOTE | 2018-10-03 17:08 | PROGRESS NOTE ---
DATE: 10/03/2018 INTERVAL HISTORY: Patient went back into atrial fibrillation with rapid ventricular response yesterday afternoon. Restarted on diltiazem drip. Back in normal sinus rhythm now. He also reported some mouth and throat discomfort yesterday was found to have thrush. Started on nystatin. Improving somewhat. No other new complaints. No other acute events overnight. REVIEW OF SYSTEMS: Twelve point review of systems negative except as per interval history. LABS: WBC 10.5, hemoglobin 12.1, hematocrit 34.2, platelets 130,000, sodium 134, potassium 4.4, bicarb 16, BUN 57, creatinine 4.2. VITALS: T-max 98.3 degrees, pulse 83, respirations 15, blood pressure 106/58, O2 saturation 95% on 2 L by nasal cannula. PHYSICAL EXAM: General: No acute distress. Vitals as above. Ill appearing. HEENT: Normocephalic, atraumatic. Moist mucous membranes. Does have some white thrush on his tongue but none visible in the posterior pharynx today. Cardiovascular: Regular rate and rhythm currently. No murmurs noted. Pulmonary: Clear to auscultation bilaterally. No wheezing, rales, rhonchi. Abdomen: Soft, nontender, nondistended. Bowel sounds positive. Extremities: Peripheral pulses intact. No clubbing, cyanosis or edema. Minimal lower lumbar paraspinal tenderness stable. Neurologic: Cranial nerves grossly intact. No focal deficits identified. Psychiatric: Normal mood and affect. Awake, alert, oriented x3. Skin: No new rashes or lesions identified. ASSESSMENT AND PLAN: 1. Sepsis likely pyelonephritis, Escherichia coli bacteremia. Patient's urinalysis suggested urinary tract infection, back pain, leukocytosis and Escherichia coli bacteremia. All consistent with urinary tract infection /pyelonephritis and sepsis. Put on Rocephin initially but changed to cefepime because of ongoing diaphoresis and discomfort. Repeat blood cultures no growth so far. ID on board in agreement with cefepime for now. May be able to transition to Levaquin if patient continues to improve. 2. Acute kidney injury essentially normal baseline a few months ago. Urine output acceptable. Creatinine rate remains high but improving slowly. Nephrology following. 3. Atrial fibrillation with rapid ventricular response. Patient with atrial fibrillation shortly after admission thought to be related to significant infection. Converted back to normal sinus rhythm but then went atrial fibrillation again yesterday. Back on diltiazem drip currently cardiology following. Continue to monitor. 4. Hypernatremia has improved slowly with fluids and treatment of underlying issues. Continue monitor. 5. Gastroesophageal reflux disease. Continue PPI. 6. Chronic pain. Continue home Percocet with morphine p.r.n. 7. Glaucoma. Continue home eye drops. 8. Deep vein thrombosis prophylaxis heparin . [facility]
[2018-10-03] MEDS: MAXIPIME 1 GM in NS 50 ML IV SCH (17:10)
[2018-10-03] MEDS: TRAVATAN 0.004% OPH SOLN BOTH EYES SCH (20:48)
[2018-10-04] MEDS: NS 1,000 ML IV SCH ×3 (01:51→17:13)
[2018-10-04 05:35] LABS: BASO# 0.02 X1000 (0.0-0.2); BASO% 0.2 % (0.0-0.8); EOS# 0.02 X1000 (0.0-0.7); EOS% 0.2 % (0.0-10.0); HEMATOCRIT 37.3 % (42.0-52.0); HEMOGLOBIN 13.3 g/dL (14.0-18.0); IMM GRAN# 0.06 X1000 (0.0-0.04); IMM GRAN% 0.6 % (0.0-0.5); LYMPH# 0.83 X1000 (1.2-3.4); LYMPH% 8.4 % (20.5-51.1); MCH 31.6 PG (27-31); MCHC 35.7 g/dL (33-37); MCV 88.6 FL (81-99); MONO# 0.59 X1000 (0.11-0.59); MPV 10.1 FL (7.4-10.4); NEUT# 8.33 X1000 (1.4-6.5); NEUT% 84.6 % (42.2-75.2); PLT 183 X1000 (130-400); RBC 4.21 XMIL (4.7-6.1); RDW 15.5 % (11.5-14.5); WBC 9.85 X1000 (4.8-10.8)
[2018-10-04 05:47] LABS: CALCIUM 8.4 mg/dL (8.8-10.2); CREATININE 3.6 mg/dL (0.7-1.2); POTASSIUM 4.3 mmol/L (3.5-5.1)
[2018-10-04] MEDS: DUONEB (A & A) INH SCH ×4 (07:29→20:21)
[2018-10-04] MEDS ORDERED: CORDARONE PO SCH (09:00)
[2018-10-04] MEDS: PERCOCET-10 PO SCH ×4 (09:09→20:29)
[2018-10-04] MEDS: NON-FORMULARY BULK MED BOTH EYES SCH ×2 (09:09→20:30)
[2018-10-04] MEDS: PROTONIX IV SCH (09:09)
[2018-10-04] MEDS: MYCOSTATIN SUSP PO SCH ×4 (09:09→20:29)
[2018-10-04] MEDS: HEPARIN SUBQ SCH ×2 (09:09→20:29)
[2018-10-04] MEDS: DIFLUCAN PO SCH (09:09)
[2018-10-04] MEDS: CORDARONE PO SCH ×3 (09:09→17:09)
[2018-10-04] MEDS: PERICOLACE PO SCH ×2 (09:12→20:30)
--- NOTE | 2018-10-04 09:25 | PROGRESS NOTE ---
DATE: 10/04/2018 SUBJECTIVE: Patient notes that he is doing a little bit better, getting a little bit stronger. He was up to the side of the bed earlier yesterday and was able to walk with assistance to the bathroom but this tired him out and he was not able to get up afterwards. PHYSICAL EXAMINATION: Vital Signs: Reviewed. Temperature 98 degrees, pulse 58, respiratory rate 20, BP 154/83, saturating 96% on room air. General: Patient is awake. Currently in no respiratory distress. He is somewhat ill-appearing. HEENT: Normocephalic. Neck: Supple. Cardiovascular: Regular rate. Chest: Clear. Abdomen: Soft. Extremities: Moves all extremities. ASSESSMENT: 1. Sepsis. 2. Pyelonephritis. 3. Escherichia coli bacteremia. 4. Acute kidney injury. Creatinine continues to improve slightly, currently down to 3.6. 5. Leukocytosis, appears resolved. 6. Hyponatremia, resolved. 7. Metabolic acidosis, likely secondary to his renal function. 8. Paroxysmal atrial fibrillation, currently on amiodarone. PLAN: We will continue patient in the hospital. Continue physical therapy and we will follow. cc: Rudolph Pascal MD
--- NOTE | 2018-10-04 09:31 | PROGRESS NOTE ---
DATE: 10/04/2018 SUBJECTIVE: Patient notes he is feeling a little bit more short of breath today. Denies any fevers or chills. PHYSICAL EXAMINATION: Vital Signs: Temperature 97.8, pulse 94, respiratory 16, BP 146/81, saturation 100% on 3 L. General: Patient is in mild respiratory distress. He is able to talk in complete sentences. HEENT: Normocephalic. Neck: Supple. CARDIOVASCULAR: Regular rate. No murmurs. Chest: Positive rhonchi. No current wheezing. Mildly labored. Abdomen: Soft, nondistended, nontender. Extremities: Moves all extremities. He has no edema. Neurologic: No focal changes. He is awake, alert, oriented. ASSESSMENT AND PLAN: 1. Acute respiratory distress syndrome with acute hypoxic respiratory failure. 2. Pneumonia. 3. Chronic obstructive pulmonary disease with exacerbation. 4. Metabolic encephalopathy, appears resolved. 5. Leukocytosis, resolved. 6. Hyponatremia. 7. Resolved. 8. Acute kidney injury, resolved. 9. Hypocalcemia, improved. 10. Mild protein-calorie malnutrition. Continues to improve. PLAN: The patient's kidney function has returned back to baseline. Sodium is better. Labs are improving, but unfortunately, his chest x-ray continues to worsen,4 today demonstrating ARDS. We will continue treatment and will follow. Continue Lasix as needed. He is currently on Azactam and Zyvox as well as 60 of Solu-Medrol IV q.12 h. cc: Rudolph Pascal MD
--- NOTE | 2018-10-04 10:17 | Diag Imaging Result Doc PS360 ---
EXAM: CHEST-1 VIEW 10/04/2018 HISTORY: SOB TECHNIQUE: AP portable upright at 0958 COMMENT: There is hazy ill-defined opacity over the lower lung [place] bilaterally which has worsened since 09/29/2018. There is a left pleural effusion which was not previously present. The heart size and pulmonary vascularity appear to be within normal limits. IMPRESSION: Left pleural effusion. Pulmonary edema plus minus pneumonia. Electronically signed by Jonathan Orozco 10/04/2018 10:14 AM
[2018-10-04 10:44] LABS: ALLEN TEST YES; BE -9.2 mmoll (-3.0-3.0); BLOOD TYPE ARTERIAL; HCO3-(ACT) 17.7 mmoll (20.0-26.0); METHB 1.1 % (0.0-1.5); O2(CT) 17.1 mL/dL (15.0-23.0); PCO2(98.6) 27 mmHg (35-45); PO2(98.6) 89 mmHg (60-100); SAMPLE BLOOD; SAO2 99.1 % (95.0-100.0); THB 12.6 g/dL (11.5-17.4); pH(98.6) 7.35 (7.35-7.45)
[2018-10-04 10:45] LABS: MODALITY CANNULA
[2018-10-04] MEDS: SOLU-MEDROL IV SCH ×2 (13:21→20:28)
[2018-10-04] MEDS: ZOFRAN IV PRN (13:22)
[2018-10-04] MEDS: MAXIPIME 1 GM in NS 50 ML IV SCH (17:10)
[2018-10-04] MEDS: TRAVATAN 0.004% OPH SOLN BOTH EYES SCH (20:30)
--- NOTE | 2018-10-04 21:03 | CONSULTATION ---
DATE OF CONSULTATION: 10/04/2018 PULMONARY CONSULT NOTE: CHIEF COMPLAINT: Shortness of breath. HISTORY OF PRESENT ILLNESS: This is a 63-year-old white male with a history of longstanding cigarette use, probable COPD. He had presented to the emergency department a few days ago with nausea, vomiting and left flank pain for about a week. Patient's daughter at bedside answered most of my questions during the assessment. Daughter stated that he has emphysema. Recent blood gases revealed pH 7.29, pCO2 34, pO2 67, HCO3 17.6. Oxyhemoglobin 92.3. REVIEW OF SYSTEMS: A 10-point review of systems was conducted and the pertinent is listed within the HPI. Otherwise, noncontributory. PAST SURGICAL HISTORY: Left total knee replacement, arthroscopy of the right knee, bilateral inguinal hernia repair, tonsillectomy, vasectomy, sinus surgery. ALLERGIES: Latex, Lyrica and hydrocodone. HOME MEDICATIONS: Please see home reconciliation list. FAMILY HISTORY: Heart disease, colorectal cancer, leukemia, melanoma, lung cancer, breast cancer. SOCIAL HISTORY: 1-1/2 packs per day smoker. Drinks beer once a night. No illicit drug use. LABORATORY DATA: White blood cells 9.85, red blood cells 4.21, hemoglobin 13.3, hematocrit 37.3. pH 7.35, pCO2 27, base excess -9.2, oxyhemoglobin 96. Sodium 139, potassium 4.3, chloride 112, carbon dioxide 16, BUN 15, creatinine 3.6, glucose 105, calcium 8.4, estimated GFR 17, proBNP 14,010. DIAGNOSTIC DATA: 1. Recent chest x-ray on 09/29/2018. No infiltrates. No effusions identified. There are scattered granuloma, no pneumonia. 2. Abdomen and pelvis CT: Hepatosplenomegaly, constipation. No renal stones. Possible cystitis, although the bladder is not incompletely distended. ASSESSMENT: General: This is a 63-year-old male in no acute distress at the present time, daughter at bedside. Vital Signs: Temperature 97.6, pulse rate 85, respiratory rate 16, blood pressure 139/80, O2 sat 99% with supplemental oxygen at 3 L. HEENT: Head is atraumatic, normocephalic. Pupils are equal and reactive. Neck: Supple, trachea midline. Respiratory: Decreased air entry with some expiratory wheezes bilaterally. No labored breathing. Cardiovascular: S1, S2 auscultated. No gallops, murmurs, or rubs. Rhythm is regular at the present time. Abdomen: Soft, nontender. Extremities: Without clubbing, edema or cyanosis. Distal pulses +2 bilaterally. integumentary: Intact. No breakdown lesions. ASSESSMENT AND PLAN: 1. Probable chronic obstructive pulmonary disease. Will start steroids 40 mg IV scheduled. Continue bronchodilators. We will initiate BiPAP use to help improve blood gases. 2. Acute kidney injury. Dr. Carmen following. 3. Urosepsis. Aware. 4. Atrial fibrillation. Patient converted back to sinus rhythm. Continue to monitor per telemetry. Thank you for the courtesy of this consult. Dictated by RONALD Will for Hanh Diaz MD cc: RONALD Will MD [facility]
[2018-10-05] MEDS: NS 1,000 ML IV SCH (01:56)
[2018-10-05] MEDS: SOLU-MEDROL IV SCH ×5 (01:56→21:21)
[2018-10-05] MEDS: MORPHINE IV PRN (04:19)
[2018-10-05 05:25] LABS: ALLEN TEST YES; BE -10.1 mmoll (-3.0-3.0); BLOOD TYPE ARTERIAL; METHB 0.8 % (0.0-1.5); O2(CT) 17.6 mL/dL (15.0-23.0); O2HB 96.3 % (95.0-99.0); PCO2(98.6) 26 mmHg (35-45); PO2(98.6) 95 mmHg (60-100); SAMPLE BLOOD; SAO2 99.5 % (95.0-100.0); THB 12.9 g/dL (11.5-17.4); pH(98.6) 7.34 (7.35-7.45)
[2018-10-05 05:26] LABS: MODALITY CANNULA
[2018-10-05 05:29] LABS: BASO# 0.01 X1000 (0.0-0.2); BASO% 0.2 % (0.0-0.8); HEMATOCRIT 37.9 % (42.0-52.0); HEMOGLOBIN 13.2 g/dL (14.0-18.0); IMM GRAN# 0.06 X1000 (0.0-0.04); IMM GRAN% 0.9 % (0.0-0.5); LYMPH# 0.69 X1000 (1.2-3.4); LYMPH% 10.4 % (20.5-51.1); MCH 31.4 PG (27-31); MCHC 34.8 g/dL (33-37); MONO# 0.08 X1000 (0.11-0.59); MONO% 1.2 % (1.7-9.3); MPV 10.1 FL (7.4-10.4); NEUT# 5.77 X1000 (1.4-6.5); NEUT% 87.3 % (42.2-75.2); PLT 225 X1000 (130-400); RBC 4.21 XMIL (4.7-6.1); RDW 15.7 % (11.5-14.5); WBC 6.61 X1000 (4.8-10.8)
[2018-10-05 05:48] LABS: CREATININE 2.8 mg/dL (0.7-1.2); POTASSIUM 4.9 mmol/L (3.5-5.1)
--- NOTE | 2018-10-05 07:06 | EKG Report ---
Test Performed on : 10/02/2018 6:22:29 PM Test Reason : ekg changes Blood Pressure : / mmHG Vent. Rate : 130 BPM Atrial Rate : 182 BPM P-R Int : 000 ms QRS Dur : 082 ms QT Int : 320 ms P-R-T Axes : 000 072 038 degrees QTc Int : 470 ms Atrial fibrillation. with rapid ventricular response. Abnormal ECG When compared with ECG of 01-OCT-2018 06:58, Atrial fibrillation. has replaced Sinus rhythm. Nonspecific T wave abnormality now evident in Inferior leads Confirmed by Janice WHITTINGTON, Frandy ([id number]) on 10/05/2018 8:47:06 AM
--- NOTE | 2018-10-05 07:07 | Diag Imaging Result Doc PS360 ---
EXAM: CHEST-1 VIEW HISTORY: SOB TECHNIQUE: Portable chest single view COMPARISON: 10/04/2018 FINDINGS: The lungs are well expanded. No cardiomegaly. Pulmonary edema is more prominent on the current exam. There may be underlying pneumonia in the lung bases. Small left pleural effusion. IMPRESSION: Mild interval worsening. Electronically signed by Javed Young 10/05/2018 7:05 AM
--- NOTE | 2018-10-05 07:12 | EKG Report ---
Test Performed on : 10/02/2018 8:06:45 PM Test Reason : Conformation of conversion to NSR Blood Pressure : / mmHG Vent. Rate : 092 BPM Atrial Rate : 092 BPM P-R Int : 150 ms QRS Dur : 082 ms QT Int : 354 ms P-R-T Axes : 066 070 052 degrees QTc Int : 437 ms Normal sinus rhythm. Normal ECG When compared with ECG of 02-OCT-2018 18:22, (Unconfirmed) Sinus rhythm. has replaced Atrial fibrillation. Confirmed by Janice WHITTINGTON, Frandy ([id number]) on 10/05/2018 8:47:22 AM
[2018-10-05] MEDS: DUONEB (A & A) INH SCH ×3 (07:46→21:40)
[2018-10-05] MEDS ORDERED: BUMEX IV ONE (08:15)
[2018-10-05] MEDS: CORDARONE PO SCH ×2 (08:57→21:20)
[2018-10-05] MEDS: PROTONIX IV SCH (08:57)
[2018-10-05] MEDS: HEPARIN SUBQ SCH ×2 (08:57→21:21)
[2018-10-05] MEDS: SODIUM BICARBONATE PO SCH ×2 (08:57→21:20)
[2018-10-05] MEDS: LEVAQUIN PO SCH (08:57)
[2018-10-05] MEDS: PERCOCET-10 PO SCH ×4 (08:57→21:20)
[2018-10-05] MEDS: PERICOLACE PO SCH ×2 (08:57→21:21)
[2018-10-05] MEDS: MYCOSTATIN SUSP PO SCH ×4 (08:57→21:20)
[2018-10-05] MEDS: NON-FORMULARY BULK MED BOTH EYES SCH ×2 (08:58→21:21)
--- NOTE | 2018-10-05 09:12 | INFECTIOUS DISEASE PROGRESS NO ---
DATE: 10/05/2018 PRESENT ILLNESS: The patient has an E-coli urinary tract infection with an associated bacteremia. The patient has oral candidiasis. He initially thought he may have esophageal candidiasis, but under the treatment we have given him here in the hospital it looks like both are clearing. MEDICATIONS: The patient is receiving cefepime and nystatin and fluconazole. PHYSICAL EXAMINATION: Vital signs: Temperature is 97.4 degrees, pulse 76, respirations 16, blood pressure 134/81. General: This is a fairly healthy-appearing, middle- aged male. He is in no acute distress. Head, eyes, ears, nose, and throat: He can hear my spoken words and see near objects. He does not have any white patches on his tongue at this time. Neck: No pain with movement of his head. Lungs: Clear to auscultation. Cardiovascular: Regular heart rate. Abdomen: Soft and nontender. Neurologic: Patient is alert. He can move his extremities. There is no tremor. Bone, joints, muscles: The patient's left knee is not swollen and is not painful with movement. Integument: No rash noted. LAB AND X-RAY: The patient's repeat blood cultures which were drawn on October 01 are sterile. The CBC shows a white count of 6610, hemoglobin 13.2, and platelet count 225,000. Blood gases show a pH of 7.34, PO2 of 95 and a pCO2 of 26. The creatinine is 2.8. GFR is 23. ASSESSMENT AND PLAN: The patient has an Escherichia coli urinary tract infection with associated bacteremia. I am switching the patient to Levaquin 250 mg daily for 40 days. The reason for the prolonged treatment is that while the patient was bacteremic, it could have seeded his left total knee arthroplasty. Also, I have sent in a prescription for Mycelex troches to have 1 that he is lets absorb in his mouth every 8 hours for the 40 days also. I am going to get a repeat urine culture today before the patient leaves. I have requested that the patient have an appointment in my office in 3 weeks and then again at 6 weeks at which time we will stop his antibiotics and consider putting him on a possible longer treatment with an oral antibiotic. Unfortunately I do not know that we will be able to find one that will do that will be useful for that. I do not want to continue Levaquin for more than the 6 weeks. Some of the side effects of Levaquin, including rash, rash, diarrhea, seizures, and tendon rupture have been explained to the patient and his son. They agree with treatment. COMORBIDITIES: He has renal failure. He has a history of renal calculi, but it does not appear that is the cause of his current urinary tract infection. cc: Jace Murrell MD MTDD
--- NOTE | 2018-10-05 09:29 | PROGRESS NOTE ---
DATE: 10/05/2018 SUBJECTIVE: The patient reports feeling better. No shortness of breath at rest. The patient reported he has been on the bed almost all of his hospitalization here. No acute issues noted as per nursing staff overnight. OBJECTIVE: Vital Signs: Temperature 98.1 degrees, heart rate 72, respiratory 17, blood pressure 132/84. O2 saturation 98% on 2 L nasal cannula. General Examination: This is a chronically ill- looking, 63-year-old male, lying in bed, in no acute distress. HEENT: Head is normocephalic, atraumatic. No JVD noted. No carotid bruits. No lymphadenopathy. No thyromegaly. Cardiovascular: S1, S2 heard. No murmurs, gallops or rubs. Regular rate and rhythm. Respiratory: Minimal wheezing noted in both pulmonary bases as well as crackles. The patient is not using any accessory muscles or having work of breathing. Abdomen: Soft. Nontender to palpation. Bowel sounds present. No organomegaly. Extremities: No clubbing, cyanosis, or edema. Peripheral pulses present in both legs. Neurological: Patient is alert and oriented x3. Moves 4 extremities. LABORATORY DATA: White cell count 6.61, hemoglobin 13.2, hematocrit 37.9, platelets 225,000 with ABG that shows pH 7.34 with pCO2 26, PO2 97. A BMP shows creatinine 2.8, BUN 50, carbon dioxide 113, ProBNP 14, 8, 64. ASSESSMENT AND PLAN: 1. Sepsis secondary to pyelonephritis. Patient had E coli bacteremia. Dr. Murrell from Infectious Disease is following this patient. I have talked to him today and he thinks that this patient can be discharged with oral antibiotics. In this case will be Levaquin that according to his renal function he is supposed to receive 250 mg p.o. Because of knee replacement, he is going to treat him for 6 weeks. As we mentioned before, from his standpoint patient is good to go today. 2. Acute kidney injury. Creatinine continues to improve. Actually the creatinine is 2.8 today. We will continue to monitor BMP. 3. Atrial fibrillation with rapid ventricular response. Patient atrial fibrillation has converted to sinus rhythm two days ago. He is not requiring any Cardizem drip. As per Cardiology recommendations, patient is receiving amiodarone. In this case is 400 mg p.o. 3 times per day. We will continue with the same management. We will leave to Cardiology service to adjust the doses of amiodarone at discharge. 4. Hypernatremia resolved. 5. Gastroesophageal reflux disease. We will continue with Protonix. 6. Chronic back pain. We will continue with Percocet and morphine p.r.n. 7. Glaucoma. We will continue with eye drops. 8. Physical deconditioning. We have called physical therapy today and occupational therapy as well to see if this patient is ready to go home versus rehab or not. DISPOSITION: We will continue to monitor this patient closely. We will check an x-ray tomorrow but this is going to be AP and lateral instead of portable because the x-ray shows mild interval improvement, but it was a portable x-ray. cc: Roberto Carlos Marcos MD
--- NOTE | 2018-10-05 09:30 | NEPHROLOGY PROGRESS NOTE ---
DATE: 10/05/2018 SUBJECTIVE: No new complaints today. He still has shortness of breath. OBJECTIVE: Vital Signs: Blood pressure 132/84, heart rate 73, respiration 18, afebrile. General: No acute distress. Skin: Warm and dry. Conjunctivae are pink. Neck: Neck veins are 6 cm. Heart: Regular. No gallops or murmurs. Lungs: Have equal breath sounds. No crackles. There is a continued increased respiratory rate and accessory muscle use. Abdomen: Soft, nontender. Bowel sounds present. Extremities: No edema, clubbing or cyanosis. INPUT AND OUTPUT: Intake 2.1 L. Output 2.4 L. IMPRESSIONS: Acute kidney injury. Progressive improvement. He still has a modest metabolic acidosis and has tachypnea that may be associated with this. I will stop his IV fluids today. We will administer sodium bicarbonate p.o. No other changes. cc: Durga Carmen MD
[2018-10-05] MEDS: ASPIRIN EC PO SCH (12:58)
--- NOTE | 2018-10-05 13:07 | CARDIOLOGY PROGRESS NOTE ---
DATE: 10/05/2018 SUBJECTIVE: Mr. Carey reports no problems today. No palpitations. His telemetry currently shows he is sinus. OBJECTIVE: Afebrile, heart rate 67, blood pressure 122/77. Generally, he is in no acute distress. Cardiovascularly, he sounds to be in a regular rate and rhythm. He has no murmurs, no S3. He has no lower extremity edema. His chest exam sounds clear bilaterally with no increased work of breathing. His abdomen is soft, nontender. PERTINENT DATA: His sodium is 140, potassium 4.9, BUN 50, creatinine is 2.8. His echocardiogram done this hospitalization demonstrates a normal ejection fraction, no regional wall motion abnormalities. ASSESSMENT: Mr. Carey is a 63-year-old gentleman, who presented with atrial fibrillation. He has a CHADS-VASc score of 0. PLAN: I have initiated aspirin therapy. I have reduced his amiodarone to 400 b.i.d. for the next week and then reducing to 400 daily. He will follow up with Dr. Koenig thereafter for definitive management of his antiarrhythmics. His CHADS-VASc score is 0, so accordingly he is on aspirin therapy. cc: Ki Ambriz MD MTDD
[2018-10-05] MEDS: ZOFRAN IV PRN ×2 (17:09→22:06)
[2018-10-05] MEDS: TRAVATAN 0.004% OPH SOLN BOTH EYES SCH (21:21)
[2018-10-06] MEDS: SOLU-MEDROL IV SCH ×3 (03:16→15:04)
[2018-10-06 05:56] LABS: BASO# 0.01 X1000 (0.0-0.2); BASO% 0.1 % (0.0-0.8); HEMATOCRIT 34.1 % (42.0-52.0); IMM GRAN# 0.05 X1000 (0.0-0.04); IMM GRAN% 0.7 % (0.0-0.5); LYMPH# 0.71 X1000 (1.2-3.4); LYMPH% 10.3 % (20.5-51.1); MCH 31.3 PG (27-31); MCHC 35.2 g/dL (33-37); MONO# 0.13 X1000 (0.11-0.59); MONO% 1.9 % (1.7-9.3); MPV 10.9 FL (7.4-10.4); PLT 216 X1000 (130-400); RBC 3.83 XMIL (4.7-6.1); RDW 15.4 % (11.5-14.5)
[2018-10-06 06:27] LABS: CALCIUM 8.1 mg/dL (8.8-10.2); CREATININE 2.6 mg/dL (0.7-1.2); POTASSIUM 4.3 mmol/L (3.5-5.1)
--- NOTE | 2018-10-06 06:45 | INFECTIOUS DISEASE PROGRESS NO ---
DATE: 10/05/2018 PRESENT ILLNESS: The patient has an E coli urinary tract infection with associated bacteremia. He also has oral candidiasis. His esophageal symptoms suggesting of candidiasis have all cleared. The patient also has a possible hematogenous infection of his prosthetic knee due to the E coli bacteremia. Also, today on the patient's latest chest x-ray, there is pulmonary edema but with possible pneumonia in the bases. The pneumonia would be due to again the E coli bacteremia which would be causing the bibasilar pneumonia. MEDICATIONS: The patient was switched yesterday from cefepime to p.o. Levaquin. The patient also is on nystatin and fluconazole. PHYSICAL EXAMINATION: Vital Signs: Temperature is 97.7 degrees, pulse 80, respirations 17, blood pressure 120/78. General: A fairly healthy-appearing, middle-aged male. He is in no acute distress. Head/eyes/ears/nose/throat: He can hear my spoken words and see near objects. He does not have any white coating on his tongue. Neck: There is no pain when he turns his head or bends his neck. Lungs: Clear to auscultation. Cardiovascular: Heart rate is regular. Abdomen: Soft and nontender. Bones, joints, muscles: The left knee is not swollen and there is no pain when I passively move the knee. Neurologic: The patient is alert. He can move his extremities. There is no tremor. LAB AND X-RAY: Chest x-ray from yesterday showed pulmonary edema with possible pneumonia in the bases. The patient's CBC shows a white count of 6900, hemoglobin 12 and platelet count 216,000. There is no BMP for this morning. ASSESSMENT AND PLAN: The patient has Escherichia coli urinary tract infection with bacteremia and possible hematogenous involvement of the left knee and the lung bases. My plan is to continue with Levaquin for a total of 6 weeks, especially because of the possible infection of the prosthetic knee hematogenously with E coli. The patient has been given an appointment to come to my office in approximately 3 weeks. COMORBIDITIES: Renal failure and a history of renal calculi, although there was no blockage of the urinary tract, which could have caused the patient's E. coli urinary tract infection. cc: Jace Murrell MD
[2018-10-06 06:55] LABS: LYMPHS 6 % (21-51); MONO 2 % (1-9); SEGS 92 % (42-75)
[2018-10-06] MEDS: ZOFRAN IV PRN (07:44)
--- NOTE | 2018-10-06 08:22 | Diag Imaging Result Doc PS360 ---
CHEST-2 VIEWS - 10/06/2018 INDICATION: pulmonary edema COMPARISON: 10/05/2018 FINDINGS: There has been significant improvement in the diffuse bilateral interstitial pulmonary edema. There are small bilateral pleural effusions. Heart size is top normal. IMPRESSION: Mixed changes, with overall improvement from prior. Electronically signed by Celestino Guardado 10/06/2018 8:20 AM
[2018-10-06] MEDS: DUONEB (A & A) INH SCH ×2 (08:28→15:07)
[2018-10-06] MEDS: SODIUM BICARBONATE PO SCH (08:54)
[2018-10-06] MEDS: MYCOSTATIN SUSP PO SCH ×2 (08:54→13:43)
[2018-10-06] MEDS: HEPARIN SUBQ SCH (08:54)
[2018-10-06] MEDS: PROTONIX IV SCH (08:54)
[2018-10-06] MEDS: PERCOCET-10 PO SCH ×2 (08:54→13:06)
[2018-10-06] MEDS: ASPIRIN EC PO SCH (08:55)
[2018-10-06] MEDS: LEVAQUIN PO SCH (08:55)
[2018-10-06] MEDS: CORDARONE PO SCH (08:55)
--- NOTE | 2018-10-06 08:55 | NEPHROLOGY PROGRESS NOTE ---
DATE: 10/06/2018 TIME SEEN: 0725. SUBJECTIVE: Mr. Carey is resting quietly in bed. Head of the bed is slightly elevated. He is on room air. States that he is feeling well, hopes to go home. OBJECTIVE: His most recent vital signs, temperature 97.7, blood pressure 120/78, heart rate 80, respirations 17. He is on room air. Last recorded saturation 98%. He has had 120 in, 2625 out to void. Labs: Sodium is 137, his potassium is 4.3, chloride is 110, CO2 is 20, his BUN is 65, with a creatinine of 2.6, glucose of 146, the patient has an anion gap of 7, his calcium is 8.1. White count 6.9, hemoglobin 12, hematocrit 34.1, with a platelet count of 216,000. Physical Examination: General: This is a 63-year-old, white male resting quietly in bed. Head of the bed is elevated. He appears in no acute distress. His skin is warm and dry. HEENT: Normocephalic, atraumatic. Conjunctivae are pale. He has ROSA. Mucous membranes are dry. Neck: Supple. Trachea midline. No evidence of JVD today. Cardiovascular: He is regular rate and rhythm. No murmur or gallop. Lungs: Clear to auscultation bilaterally. Equal excursion. He is on room air. Abdomen: Soft, nontender. Positive bowel sounds. Genitourinary: Not inspected. Patient has adequate urine out documented to void. Extremities: Have no edema. No clubbing or cyanosis. Neurological: The patient is alert and oriented x3. ASSESSMENT AND PLAN: 1. Acute kidney injury. The patient continues to progressively improve. BUN and creatinine are down today. Adequate urine output. From our perspective, patient is okay for discharge. We can follow his renal status on an outpatient basis with labs in our office, with followup in 2 to 3 weeks. 2. Electrolytes and acid-base balance. These are acceptable. The patient is now on oral sodium bicarbonate. 3. Anemia. This is in target. 4. Urinary tract infection. Patient had been on renal dosed antibiotics. I would like to thank you for allowing us to follow with this patient. Dictated by RONALD Deleon for Durga Carmen MD Face to face encounter, data reviewed, discussed with Parminder De Paz on 10/06/18. I agree with the above assessment and plan of care. cc: RONALD Deleon MD MTDD
[2018-10-06] MEDS: PERICOLACE PO SCH (09:06)
[2018-10-06] MEDS: NON-FORMULARY BULK MED BOTH EYES SCH (09:46)
[2018-10-06 11:38] VITALS: BP 112/67
[2018-10-06] MEDS ORDERED: PNEUMOVAX 23 IM ONE (15:02)
--- NOTE | 2018-10-06 20:32 | DISCHARGE SUMMARY ---
ADMISSION DATE: 09/29/2018 DISCHARGE DATE: 10/06/2018 CONSULTATIONS: 1. Dr. Anjum Koenig with Cardiology. 2. Dr. Jace Murrell with Infectious Disease. 3. Dr. Durga Carmen with Nephrology. 4. Dr. Diaz with Pulmonology. PERTINENT PROCEDURES: 1. Abdomen and pelvis CT: Hepatosplenomegaly, constipation, no renal stones, possible cystitis, although the bladder is incompletely distended. 2. Echocardiogram with limited views. EF of 61%. 3. Echocardiogram with EF of 65%, pulmonary hypertension at 40 to 45 mmHg. 4. Renal ultrasound with questionable slight increased renal echotexture, otherwise normal. 5. Final chest x-ray mixed changes with overall improvement from prior. DISCHARGE DIAGNOSES: 1. Sepsis secondary to pyelonephritis. The patient had an Escherichia coli bacteremia followed by Dr. Murrell with Infectious Disease. The patient will be discharged home on p.o. antibiotics, and he will have to receive 6 weeks of treatment because of recent knee replacement. 2. Acute kidney injury continues to improve. Followed by Dr. Carmen with Nephrology. He has adequate urine output, and Nephrology has okayed him for discharge and follow up with him on an outpatient basis with labs in their office in 2 to 3 weeks. Electrolytes acid-based are acceptable. The patient is now on oral sodium bicarbonate. Anemia is within target. 3. New onset atrial fibrillation with a CHADS-Vasc score of 0. He was initiated on aspirin therapy by Cardiology. His amiodarone has been reduced, and the patient will follow up with Dr. Koenig for a definitive management of his anti arrhythmics. 4. Hyponatremia resolved. 5. Gastroesophageal reflux disease. Continue proton pump inhibitor. 6. Chronic back pain. Continue home medications. 7. Glaucoma. Continue eyedrops. 8. Physical deconditioning. The patient has been working with PT and OT. We will be discharged home with home health with [facility]. HOSPITAL COURSE: Briefly, Mr. Carey is a 63-year-old male with a history of kidney stones, and chronic pain syndrome. He takes multiple narcotics. He came to the ED complaining of 2 weeks of lower back pain on both sides of his flank that was nonradiating and intermittent. Over the course of the week, his pain continued to worsen. It got constant and sharp with no aggravating or alleviating factors. The pain finally localized to the left lower flank area. He did develop some nausea with very occasional episodes of vomiting, small amounts of whatever he attempted to ingest. He was having chills, night sweats and subjective fevers, and also complained of postural lightheadedness, and felt his urine output had declined. He went to see his family doctor, John Swain. His urine was very dark and dirty, and he was referred to the ED for further evaluation. He was found to have an acute kidney injury, urinary tract infection with possible pyelonephritis and obstructive uropathy as well as hypovolemic hyponatremia. We set him up for an abdomen and pelvis CT scan that showed possible cystitis. He went into atrial fibrillation with RVR. I believe it was provoked by a noncardiac illness. He was followed by Cardiology as well as Dr. Carmen for continued worsening renal function secondary to his bacteremia as well as components of acute tubular necrosis and volume contraction. He was continued on IV antibiotics and IV hydration. Pulmonology was brought on board for continued shortness of breath, felt that he had probable COPD and was initiated on steroids, bronchodilators, and BiPAP to help improve his blood gases. Mr. Carey continued to improve over the course of his hospital stay. He was working with physical therapy and occupational therapy. He will be discharged home on p.o. antibiotics under the direction of Dr. Jace Murrell for 6 weeks secondary to having hardware in his knee. He has converted to sinus rhythm after being on a Cardizem drip, has been swapped over to p.o. amiodarone. His CHADS Vasc score is a 0, so he will be initiated on aspirin. Mr. Carey has chosen to go home with home health with [facility], and will follow up with Dr. Carmen on an outpatient basis for renal labs. Dr. Jace Murrell as well as Dr. Koenig. VITAL SIGNS: At time of discharge, temperature 97.6 degrees, heart rate 52, respirations 18, blood pressure 112/67, and O2 is 96% on room air. DISCHARGE DIET: Mechanical soft. DISCHARGE MEDICATIONS: 1. Prilosec 40 mg p.o. daily. 2. Simbrinza 1 drop both eyes b.i.d. 3. Testosterone 100 mg IM as directed. 4. Travatan 1 drop both eyes daily. 5. Zofran 1 tab p.o. daily. 6. Zyrtec 10 mg p.o. daily. 7. Amiodarone 400 mg p.o. as directed. The patient is to take 2 tablets p.o. b.i.d. for 10 days and 2 tablets p.o. daily continuously. 8. Levaquin 250 mg p.o. daily x40 tablets provided by Dr. Murrell. 9. Medrol Dosepak 4 mg p.o. as directed x1 package. 10. Daryl Mycelex 10 mg as directed q.8 hours. 11. Percocet 10/325 one each p.o. q.4 hours p.r.n. 12. Nida-Colace 2 each p.o. b.i.d. 13. Sodium bicarbonate 1300 mg p.o. b.i.d. FOLLOWUP: Mr. Carey is being discharged home with [facility]. He is to continue to follow up with his renal function with Dr. Carmen. He is to follow up with Dr. Jace Murrell after his antibiotics as well as Dr. Anjum Koenig in the next 3 to 4 weeks for his atrial fibrillation as well as his primary care provider, Miriam CARDENAS. He can return to the ED or call 911 for any worsening of symptoms. He is to take all medications as prescribed. He can return to the ED or call 911 for any worsening of symptoms. Dictated by RONALD Friedman for Roberto Carlos Marcos MD cc: MD Jace Garcia MD Reginald D. Gladish, MD Natalie Cesar Garcia-Rodriguez, MD
[2018-10-12] MEDS ORDERED: CORDARONE PO SCH (21:00)
== END 2018-10-06 16:00 | disposition home health service (06) | DRG 871 ==
LOC: SUPCPDRO → ED 15:59 → EDIPHOLD 22:55 → SUATTDRO 22:55 → 3S 09-30 17:09
PROVIDERS: ATTEND Internal Medicine
CPT/HCPCS: 71010; 71020; 71045; 71046; 74176; 76770; 80048; 80053; 80101; 80301; 80307; 80324; 80345; 80346; 80353; 80358; 80361; 80365; 81001; 82550; 82570; 82805; 83605; 83735; 83880; 83992; 84153; 84156; 84300; 84439; 84443; 84484; 84540; 85025; 85610; 85651; 85730; 86140; 87040; 87077; 87088; 87186; 87205; 90732; 93005; 93010; 93306; 93308; 94640; 94660; 94761; 96361; 96365; 96366; 96367; 96372; 96375; 96376; 97162; 97165; 97530; 99285; A9270; C9113; G0103; G0431; G0434; G0479; G0480; J0282; J0692; J0696; J0744; J0780; J1644; J2270; J2405; J2920; J7030; J7060; S0164; S0171; XXXXX